=== PATIENT | female | born 2000 | race Caucasian/White ===

== ENCOUNTER 2019-09-25 13:43 | Emergency (ER) | payer MEDICAID ==
[~2019-09-25] VITALS: Ht 165.1 cm; Wt 68.0 kg
[2019-09-25 16:45] VITALS: BP 114/72
== END 2019-09-25 16:46 | disposition home or self-care (01) ==
LOC: ER 13:43
DX: S09.8XXA Other specified injuries of head, initial encounter (principal); W26.8XXA Contact with other sharp object(s), not elsewhere classified, initial encounter; Y93.89 Activity, other specified; Y92.89 Other specified places as the place of occurrence of the external cause; Y99.8 Other external cause status
CPT/HCPCS: 72170; 99284